=== PATIENT | female | born 1995 | race Caucasian/White ===

== ENCOUNTER 2019-03-25 13:26 | Emergency (ER) | payer BC, OTHER ==
[~2019-03-25] VITALS: Ht 160 cm; Wt 85.7 kg
[~2019-03-25 13:26] MED LIST: AMOX250S5 PO; DEXAINTSOL PO; HYDR473S50 PO; TETRACAINESUCKERS MT
--- NOTE | 2019-03-25 13:40 | ED Lower Extremity ---
General Chief Complaint: Lower Extremity Stated Complaint: FALL - RT ANKLE PAIN Source: patient, other Exam Limitations: no limitations History of Present Illness Date Seen by Provider: Mar 25, 2019 Time Seen by Provider: 13:27 Initial Comments The patient presents to the ER by private conveyance with chief complaint of 2 days ago going to a [place] [employer] and tripped over something causing pain in her foot on the dorsum midline. She's not having any pain in your ankle. She has some mild swelling and has difficulty putting full body weight on it but is able to walk. No previous history of surgery or injury to the foot. Allergies and Home Medications Allergies Coded Allergies: No Known Drug Allergies (Unverified , 06/01/16) Home Medications Amoxicillin 250 Mg/5 Ml Susp, 2 TSP PO BID Prescribed by: APRIL DIEGO on 06/03/16 1233 Dexamethasone 1 Mg/1 Ml Kitty, 2 TSP PO DAILY Mix 4MG/2.5CC water Prescribed by: APRIL DIEGO on 06/03/16 1233 Hydrocodone/Acetaminophen 473 Ml Solution, 2-3 TSP PO Q4H PRN for PAIN Prescribed by: APRIL DIEGO on 06/03/16 1233 Tetracaine Sucker Ea, 1 EA MT UD PRN for PAIN Tetracain Suckers These suckers are custom made and require a prescription. Moisten the sucker first and then suck on it gently as far back in the mouth as possible for 2-3 days. You can repeadt it in about an hour. This will take the edge off but not completely numb the throat. Prescribed by: APRIL DIEGO on 06/03/16 1233 Patient Home Medication List Home Medication List Reviewed: Yes Review of Systems Constitutional: No chills, No fever EENTM: No ear discharge, No ear pain Respiratory: No cough, No short of breath Cardiovascular: No chest pain, No edema Gastrointestinal: No constipation, No diarrhea Genitourinary: No discharge, No dysuria Past Edwedmu-Yzmyjs-Xgzulq Hx Patient Social History Alcohol Use: Occasionally Uses Recreational Drug Use: No Smoking Status: Never a Smoker Recent Hopitalizations: No Seasonal Allergies Seasonal Allergies: Yes Past Medical History Headaches /Migraines Reproductive Disorders: No Female Reproductive Disorders: Denies Sexually Transmitted Disease: No HIV/AIDS: No Gastroesophageal Reflux Tonsilitis Loss of Vision: Bilateral Hearing Impairment: Denies Adverse Reaction/Blood Tranf: No (N/A) Physical Exam Vital Signs Vital Signs - First Documented 03/25/19 13:36 Temp 37.0 Pulse 107 Resp 16 B/P (MAP) 145/73 (97) Pulse Ox 100 Capillary Refill : Height, Weight, BMI Height: 5'2.00" Weight: 146lbs. 0.0oz. 66.220417mf; 26.7 BMI Method: General Appearance: WD/WN, mild distress HEENT: PERRL/EOMI, pharynx normal Neck: non-tender, full range of motion Cardiovascular: normal peripheral pulses, regular rate, rhythm Respiratory: no respiratory distress, no accessory muscle use Legs: bilateral leg non-tender, bilateral leg normal inspection, bilateral leg normal range of motion Ankles: bilateral ankle non-tender, bilateral ankle normal inspection, bilateral ankle normal range of motion, bilateral ankle no evidence of injury Feet: left foot non-tender, left foot normal inspection; bilateral foot normal range of motion; left foot no evidence of injury; right foot bone tenderness (midline dorsum), right foot pain, right foot swelling (mild) Neurologic/Tendon: normal sensation, normal motor functions, normal tendon functions, responds to pain, no evidence tendon injury Neurologic/Psychiatric: alert, normal mood/affect, oriented x 3 Skin: warm/dry, ecchymosis (faint, right foot) Progress/Results/Core Measures Results/Orders My Orders Orders - QUANG LYONS Foot 3 View Right (03/25/19 13:34) Vital Signs/I&O 03/25/19 13:36 Temp 37.0 Pulse 107 Resp 16 B/P (MAP) 145/73 (97) Pulse Ox 100 Diagnostic Imaging Diagonstic Imaging: Xray Plain Films/CT/US/NM/MRI: other (right foot) Comments NAME: PRETTY THORNTON [facility] REC#: [id number] PT STATUS: REG ER : 1995 PHYSICIAN: QUANG LYONS MD ADMIT DATE: 03/25/19/ER FS Draft Date of Exam:03/25/19 FOOT 3 VIEW RIGHT INDICATION: Right foot pain status post injury COMPARISON: None. FINDINGS: 3 views of the right foot demonstrate no acute fracture or dislocation. There are no focal osseous lesions. There is no soft tissue swelling. Joint spaces are well maintained. No radiopaque foreign bodies are seen. IMPRESSION: No acute fractures or dislocations of the right foot. Dictated on workstation # [id number] Dict: 03/25/19 1349 Trans: 03/25/19 1352 [facility] [id number] Interpreted by: CONNOR BROCK MD Electronically signed by: Reviewed: Reviewed by Me Departure Impression Primary Impression: Right foot pain Disposition: HOME, SELF-CARE Condition: Stable Departure-Patient Inst. Decision time for Depature: 14:10 Referrals: NO,LOCAL PHYSICIAN (PCP/Family) Primary Care Physician Patient Instructions: Foot Sprain (DC) Add. Discharge Instructions: Ice the foot down today. Afterwards heating pads and topical creams or useful. Tylenol 1000 mg every 8 hours as needed for pain. Ibuprofen 800 mg every 8 hours as needed for pain. Keep the foot elevated above the level of your heart to decrease swelling and pain. An Bonilla bandage around the foot can help with compression to decrease swelling and pain. If you are still having significant pain 7-10 days after the initial injury then you need to follow-up with primary care doctor for reevaluation. All discharge instructions reviewed with patient and/or family. Voiced understanding. QUANG LYONS Mar 25, 2019 13:40
--- NOTE | 2019-03-25 13:53 | Diagnostic Imaging Report ---
INDICATION: Right foot pain status post injury COMPARISON: None. FINDINGS: 3 views of the right foot demonstrate no acute fracture or dislocation. There are no focal osseous lesions. There is no soft tissue swelling. Joint spaces are well maintained. No radiopaque foreign bodies are seen. IMPRESSION: No acute fractures or dislocations of the right foot. Dictated by: Dictated on workstation # [id number]
[2019-03-25 14:20] VITALS: BP 121/63
== END 2019-03-25 14:20 | disposition home or self-care (01) ==
LOC: EDUNIT# 13:26 → ER FS 13:29
DX: M79.671 Pain in right foot (principal); G43.909 Migraine, unspecified, not intractable, without status migrainosus; K21.9 Gastro-esophageal reflux disease without esophagitis; W01.0XXA Fall on same level from slipping, tripping and stumbling without subsequent striking against object, initial encounter
CPT/HCPCS: 73630